=== PATIENT | female | born 1980 | race Caucasian/White ===

== ENCOUNTER 2016-10-05 05:38 | Day surgery (SDC) | payer BC ==
[~2016-10-05] VITALS: Ht 162.6 cm; Wt 81.7 kg
[~2016-10-05 05:38] MED LIST: ACYCLOVIR400 MG PO; BACTRIM,SEPT1 TABLET PO; CLONIDINE HCL0.1 MG PO; COLACE100 MG PO; CYMBALTA30 MG PO; IBUPROFEN800 MG PO; IRON325 MG PO; Motrin PO; NORCO 5/3251 TABLET PO; PRENATAL TABLE1 EAC3 PO; PROBIOTIC1 EAC2 PO; RIFAMPIN300 MG PO; TYLENOL EXTRA500 MG PO; VEGETABLE SUPPLEMENT PO
[2016-10-05 06:37] VITALS: BP 137/69
[2016-10-05] MEDS ORDERED: PERCOCET 5/31 TABLET PO (09:02)
[2016-10-05] MEDS ORDERED: DIFLUCAN100 MG PO (09:02)
[2016-10-05] MEDS ORDERED: MOTRIN800 MG PO (09:02)
[2016-10-05] MEDS ORDERED: DIFLUCAN150 MG PO (09:04)
[2016-10-05 10:16] VITALS: BP 137/88
[2016-10-05 11:44] VITALS: BP 128/82
== END 2016-10-05 11:49 | disposition home or self-care (01) ==
LOC: SDC 05:38
PROC: 0UDB8ZX Extraction of Endometrium, Via Natural or Artificial Opening Endoscopic, Diagnostic (ICD-10-PCS; principal; 2016-10-05)
PROC: 0U5B8ZZ Destruction of Endometrium, Via Natural or Artificial Opening Endoscopic (ICD-10-PCS; principal; 2016-10-05)
PROC: 0U574ZZ Destruction of Bilateral Fallopian Tubes, Percutaneous Endoscopic Approach (ICD-10-PCS; principal; 2016-10-05)
DX: Z30.2 Encounter for sterilization (principal); N92.0 Excessive and frequent menstruation with regular cycle; N80.0 Endometriosis of uterus; B00.9 Herpesviral infection, unspecified; A69.20 Lyme disease, unspecified; Z86.32 Personal history of gestational diabetes; Z87.440 Personal history of urinary (tract) infections; Z82.49 Family history of ischemic heart disease and other diseases of the circulatory system; Z82.3 Family history of stroke; Z88.0 Allergy status to penicillin
CPT/HCPCS: 88305; 93005; J0330; J1100; J1580; J1885; J2405; J3010; J7050; S0020